=== PATIENT | male | born 2000 | race Caucasian/White ===

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

== ENCOUNTER 2020-02-17 12:52 | Emergency (ER) | payer MEDICAID, OTHER ==
[2020-02-18 14:47] LABS: SARS-CoV-2 MS2 Positive; SARS-CoV-2 N Gene Negative; SARS-CoV-2 S Gene Negative; SARS-CoV-2 orf1ab Negative
== END 2020-02-17 14:00 | disposition home or self-care (01) ==
LOC: MADERS 12:52
DX: Z20.828 Contact with and (suspected) exposure to other viral communicable diseases (principal); F17.210 Nicotine dependence, cigarettes, uncomplicated
CPT/HCPCS: 87635; 99283; U0003

== ENCOUNTER 2020-12-13 13:47 | Emergency (ER) | payer MEDICAID, SELFPAY ==
[2020-12-13] MEDS ORDERED: Dexamethasone 4 MG TAB ONE (15:02)
[2020-12-13] MEDS ORDERED: Dexamethasone 10 MG/ML VIAL ONE (15:02)
== END 2020-12-13 15:06 | disposition home or self-care (01) ==
LOC: MADERS 13:47
DX: J02.9 Acute pharyngitis, unspecified (principal); R59.0 Localized enlarged lymph nodes; F17.210 Nicotine dependence, cigarettes, uncomplicated
CPT/HCPCS: 87081; 87430; 99283; J1100; J8540

== ENCOUNTER 2020-12-17 19:29 | Emergency (ER) | payer SELFPAY ==
[2020-12-17 20:25] LABS: MONO NEGATIVE CONTROL ZONE White (Negative) (White); MONO POSITIVE CONTROL Pink Line (Positive) (PINK/RED); Mononucleosis NEGATIVE (NEGATIVE)
[2020-12-17] MEDS ORDERED: Dexamethasone 4 mg/ml Vial ONE (20:36)
[2020-12-17] MEDS ORDERED: Ibuprofen 800 MG TAB ONE (20:36)
[2020-12-17] MEDS ORDERED: Amoxicillin/Potassium Clav 875 MG TAB ONE (20:36)
== END 2020-12-17 20:54 | disposition home or self-care (01) ==
LOC: MADERS 19:29
DX: J02.9 Acute pharyngitis, unspecified (principal); F17.210 Nicotine dependence, cigarettes, uncomplicated
CPT/HCPCS: 36415; 86308; 99283; J1100

== ENCOUNTER 2021-05-12 11:41 | Emergency (ER) | payer BC, SELFPAY ==
[2021-05-12] MEDS ORDERED: Metoclopramide HCl 10 MG/2 ML VIAL ONE (13:26)
[2021-05-12 13:39] LABS: #Eosinphils 0.1 thou/uL (0.0-0.7); #Lymphocytes 1.6 thou/uL (1.20-3.40); #Monocytes 0.7 thou/uL (0.11-0.59); #Neutrophils 3.8 thou/uL (1.40-6.50); %Basophils 0.7 % (0.0-1.0); %Eosinophils 1.7 % (0.0-10.0); %Lymphocytes 26.2 % (21.0-51.0); %Monocytes 11.3 % (0.0-10.0); %Neutrophils 60.1 % (42.0-75.0); Hemoglobin 15.5 g/dL (14.0-18.0); Mean Corpuscular HGB CONC 31.4 g/dL (32.0-36.0); Mean Corpuscular Hemoglobin 28.3 pg (27.0-31.0); Mean Corpuscular Volume 89.9 fL (78.0-98.0); Mean Platelet Volume 8.6 fL (7.4-10.4); Platelet Count 191 thou/uL (130-400); RBC Distribution Width 12.7 % (11.5-14.5); Red Blood Cell (RBC) Count 5.49 mill/uL (4.70-6.10); White Blood Cell (WBC) Count 6.3 thou/uL (4.8-10.8)
[2021-05-12 13:57] LABS: ALT (SGPT) 40 U/L (8-55); AST (SGOT) 34 U/L (5-34); Albumin 4.4 g/dL (3.5-5.0); Alkaline Phosphatase 63 U/L (40-110); Anion Gap 15 mmol/L (10-20); BUN (Urea Nitrogen) 10 mg/dL (8.9-20.6); Bilirubin, Total 0.5 mg/dL (0.2-1.2); CK (CPK) 297 U/L (30-200); Calc. Creatinine Clearance 0 mL/min (70-130); Calcium 9.8 mg/dL (7.8-10.44); Carbon Dioxide 23 mmol/L (22-29); Chloride 108 mmol/L (98-107); Globulin 3.3 g/dL (2.4-3.5); Glucose 91 mg/dL (70-105); Potassium 4.1 mmol/L (3.5-5.1); Protein, Total 7.7 g/dL (6.0-8.3); Sodium 142 mmol/L (136-145)
== END 2021-05-12 14:39 | disposition home or self-care (01) ==
LOC: MADERS 11:41
DX: R51.9 Headache, unspecified (principal); E86.0 Dehydration; F17.210 Nicotine dependence, cigarettes, uncomplicated
CPT/HCPCS: 80053; 82550; 85025; 96374; J2765; J7050